=== PATIENT | female | born 2000 | race Caucasian/White ===

== ENCOUNTER 2021-08-17 01:37 | Emergency (ER) | payer SELFPAY ==
[~2021-08-17] VITALS: Ht 154.9 cm; Wt 60.1 kg
[2021-08-17 01:45] VITALS: BP 109/77
[2021-08-17] MEDS ORDERED: PSEUDOEPHEDRINE HCL 30MG TABLET PO ONE (02:15)
[2021-08-17] MEDS ORDERED: ALBUTEROL (0.083%) 2.5MG/3ML NEB HHN ONE (02:15)
[2021-08-17] MEDS ORDERED: PSEU120T56 MT (02:29)
== END 2021-08-17 02:55 | disposition home or self-care (01) ==
LOC: ER 01:37
DX: B34.9 Viral infection, unspecified (principal); R09.81 Nasal congestion; R50.9 Fever, unspecified
CPT/HCPCS: 71045; 99283